=== PATIENT | male | born 1955 | race Caucasian/White ===

== ENCOUNTER 2020-10-30 08:13 | Day surgery (SDC) | payer OTHER ==
[~2020-10-30] VITALS: Ht 167.6 cm; Wt 70.0 kg
[~2020-10-30 08:13] MED LIST: ATOR20TA58 PO; CYAN-25 PO; DULA1.5P SQ; HYDROmorphone 2 MG/ML VIAL IVP PRN; IV RINGERS,LACTATED 1000ML 1,000 ML IV SCH; LISI20TA18 PO; MAGN250T10 PO; MORPHINE SULFATE 2 MG/ML VIAL. IVP PRN; PROCHLORPERAZINE 10 MG/2 ML VIAL. IVP PRN; SITA1TAB11 PO; fentaNYL PF VIAL 100 MCG/2 ML VIAL IVP PRN
[2020-10-30] MEDS ORDERED: INSULIN LISPRO 100 UNIT/ML 3ML VIAL for OP,RR ONLY. SQ PRN (08:45)
[2020-10-30] MEDS ORDERED: INSULIN LISPRO 100 UNIT/ML 3ML VIAL for OP,RR ONLY. SQ ONE (08:50)
[2020-10-30] MEDS ORDERED: ceFAZolin 2GM PREMIX 2 GM/50 ML BAG IV ONE (09:00)
[2020-10-30] MEDS ORDERED: ROPIVacaine 0.5% PF 20 ML VIAL. ONE (09:10)
[2020-10-30] MEDS ORDERED: fentaNYL PF VIAL 100 MCG/2 ML VIAL ONE ×2 (09:11→10:00)
[2020-10-30] MEDS ORDERED: MIDAZOLAM HCL/PF 2 MG/2 ML VIAL. ONE (09:11)
[2020-10-30] MEDS ORDERED: DEXAMETHASONE SOD PHOS 4 MG/ML VIAL ONE (09:12)
[2020-10-30] MEDS ORDERED: LIDOCAINE 2% PF 5 ML VIAL. ONE (09:12)
[2020-10-30] MEDS ORDERED: ONDANSETRON PF 4 MG/2 ML VIAL. ONE (09:12)
[2020-10-30] MEDS ORDERED: PROPOFOL 10 MG/ML (20ML) VIAL. IV ONE (09:12)
[2020-10-30] MEDS ORDERED: ROCURONIUM 50 MG/5 ML VIAL. ONE (09:14)
[2020-10-30] MEDS ORDERED: ePHEDrine PF IN SALINE 50 MG/10 ML SYRINGE. IV ONE (10:32)
[2020-10-30] MEDS ORDERED: SEVOFLURANE 61 TO 120 MINUTES. IH ONE (10:42)
[2020-10-30] MEDS ORDERED: NEOSTIGMINE METHYLSULFATE 5 MG/5 ML SYRINGE. ONE (11:01)
[2020-10-30] MEDS ORDERED: GLYCOPYRROLATE 1 MG/5 ML VIAL. ONE (11:01)
[2020-10-30] MEDS ORDERED: EPINEPHrine VIAL 30 MG/30 ML VIAL ONE (11:27)
[2020-10-30] MEDS ORDERED: OXYC1TAB19 PO (11:43)
--- NOTE | 2020-10-30 11:50 | DISCH ---
DISCHARGE INSTRUCTIONS Condition on Discharge Condition on Discharge: Stable Activity After Discharge Activity Instructions for Disc: Other, see below (5 pound elbow flexion limit) Lifting Instructions after Dis: No heavy lifting, No pulling or pushing (May use right arm for fine motor use such as eating writing typing no lifting pulling pushing) Weight Bearing Status after Di: Non weight bearing Diet after Discharge Diet after Discharge: Diabetic No Calorie Level Wound Incision Care Wound/Incision Care: Change dressing (Remove dressing in 2 days may then shower, replace with Band-Aids) Community/Resources/Services Services at Discharge: PT EVALUATE & TREAT (Active and passive range of motion starting rotator cuff strengthening as tolerated) Contacting the after DC Call your doctor for: Concerns you may have Follow-Up Follow up with: Dr. Putnam or Robert 10 days BALBIR PUTNAM MD Oct 30, 2020 11:50
[2020-10-30 12:19] VITALS: BP 109/74
--- NOTE | 2020-10-30 15:46 | PDOC4 ---
Operative Note Operative Note Date of surgery: 10/30/2040 Preoperative diagnosis: Rotator cuff and superior labral tear Postoperative diagnosis: Same with severe labral fraying and full-thickness distal supraspinatus tear and biceps flattening and fraying Operative procedure: Right shoulder arthroscopy biceps tenodesis with extensive debridement of labrum and partial-thickness rotator cuff tear Surgeon: Indy Assist: Geovani peña Anesthesia: General plus scalene block Estimated blood loss: 5 cc Complications: None Operative indications: Please see my preoperative clinic note for detailed operative indications and note that we had reviewed risk benefits postoperative course and possible complications of nonhealing infection nerve or blood vessel damage continued pain to call or other anesthetic complications among others and informed consent was obtained to proceed with surgical evaluation and treatment Operative text: Patient was identified procedure verified patient placed in the supine position on the operating table and after adequate amounts of general anesthesia were administered placed in the decubitus position right side up all bony prominences were well-padded. Right shoulder was examined under anesthesia found to have full range of motion with no instability in the right shoulder was prepped and draped in standard sterile fashion and the right arm placed in arthroscopic arm hollis with a total of 10 pounds of traction. After timeout was performed patient procedure identified and verified a standard posterior portal was established an anterior portal established using spinal needle localization and the shoulder joint was systematically examined. There was extensive labral fraying and biceps was compromised with significant fraying in the bicipital groove. Rotator cuff was noted to have a partial-thickness undersurface supraspinatus tear which was trimmed back to stable tissue and the area of most involvement was marked with a PDS suture, biceps was tenotomized and labrum was extensively debrided back to stable tissue. Subscapularis insertion capsuloligamentous structures and bare area of the humerus were all noted to be intact and glenohumeral cartilage well preserved. Subacromial space was then entered and bursa was cleared to allow adequate visualization and the PDS suture was located and rotator cuff was noted to be scuffed with partial tear which was again debrided back to stable tissue but not thought to need a rotator cuff repair. Biceps was retrieved through the anterior portal and drilling carried out over a guidewire in the bicipital groove biceps was well tensioned and contour maintained with fixation using a Quatro bolt anchor. Joint was drained of arthroscopic fluid portals closed with subcutaneous Vicryl and nylon suture sterile absorbent dressings were placed patient was placed in a sling and patient was returned to recovery room stable condition having tolerated procedure well. Geovani peña was present for the procedure and assisted patient positioning prepping draping assistance with equipment closure and dressings BALBIR CRAWFORD MD Oct 30, 2020 15:46
== END 2020-10-30 12:47 | disposition home or self-care (01) ==
LOC: SURG 08:13
PROVIDERS: ATTEND Orthopaedic Surgery
DX: S43.431A Superior glenoid labrum lesion of right shoulder, initial encounter (principal); M25.311 Other instability, right shoulder; I12.9 Hypertensive chronic kidney disease with stage 1 through stage 4 chronic kidney disease, or unspecified chronic kidney disease; E11.22 Type 2 diabetes mellitus with diabetic chronic kidney disease; N18.9 Chronic kidney disease, unspecified; M19.90 Unspecified osteoarthritis, unspecified site; Z79.899 Other long term (current) drug therapy; Z98.890 Other specified postprocedural states; Z72.89 Other problems related to lifestyle; Z87.891 Personal history of nicotine dependence; X58.XXXA Exposure to other specified factors, initial encounter; Y93.89 Activity, other specified; Y92.89 Other specified places as the place of occurrence of the external cause; Y99.8 Other external cause status
CPT/HCPCS: 29823; 29828; 64415; 82962; A4565; A4930; C1713; J0171; J0690; J1100; J1815; J2250; J2405; J2704; J2710; J2795; J3010; J3490